=== PATIENT | female | born 1980 | race Caucasian/White ===

== ENCOUNTER 2018-09-12 18:35 | Emergency (ER) | payer SELFPAY ==
[2018-09-12 18:46] VITALS: BP 119/85; PULSE 102; TEMP 98.3; BMI 34.7
[2018-09-12] MEDS ORDERED: SODIUM CHLORIDE 1,000 ML IV ONE (19:15)
[2018-09-12] MEDS ORDERED: ACETAMINOPHEN 1000 MG/100 ML VIAL (NON FORMULARY) IVPB ONE (19:16)
[2018-09-12] MEDS ORDERED: ONDANSETRON 4 MG/2 ML VIAL IVPB ONE (19:19)
[2018-09-12] MEDS ORDERED: HYOSCYAMINE SULFATE 0.125 MG *ODT PO ONE (19:20)
[2018-09-12] MEDS ORDERED: FAMOTIDINE 20 MG TABLET PO ONE (19:51)
[2018-09-12] MEDS ORDERED: ACETAMINOPHEN INJECTION 100 ML IVPB ONE (19:56)
[2018-09-12] MEDS ORDERED: HYOSCYAMINE SULFATE 0.125 MG *ODT ONE (19:56)
[2018-09-12] MEDS ORDERED: ONDANSETRON 4 MG/2 ML VIAL ONE (19:56)
[2018-09-12 20:02] LABS: BASO % 0.1 % (0-2.0); EOS % 0.6 % (0-4.5); HEMATOCRIT 40.8 % (32.4-45.2); HEMOGLOBIN 13.6 GM/dl (10.7-15.3); LYMPH % 7.7 % (8-40); MCH 27.8 pg (25.7-33.7); MCHC 33.4 g/dl (32.0-36.0); MEAN CELL VOLUME 83.1 fl (80-96); MEAN PLT VOLUME 9.4 fl (7.5-11.1); MONO % 5.4 % (3.8-10.2); NEUT % 86.2 % (42.8-82.8); PLATELET COUNT 289 K/MM3 (134-434); RDW 14.4 % (11.6-15.6); WHITE BLOOD COUNT 14.2 K/mm3 (4.0-10.8)
[2018-09-12 20:20] LABS: ALBUMIN 4.4 g/dl (3.4-5.0); BILIRUBIN,TOTAL 0.5 mg/dl (0.2-1); CALCIUM 9.4 mg/dl (8.5-10); CREATININE 0.6 mg/dl (0.55-1.3); POTASSIUM 4.2 mmol/L (3.5-5.1); TOT PROT 9.1 g/dl (6.4-8.2)
[2018-09-12] MEDS ORDERED: FAMOTIDINE 20 MG TABLET ONE (20:38)
--- NOTE | 2018-09-12 21:00 | PDOC ---
Documentation entered by Erika Moulton SCRIBE, acting as scribe for Deion Harris MD. Deion Harris MD: This documentation has been prepared by the Saige brandon Brenda, SCRIBE, under my direction and personally reviewed by me in its entirety. I confirm that the documentation accurately reflects all work , treatment, procedures, and medical decision making performed by me. History of Present Illness - General Chief Complaint: Lightheaded Stated Complaint: VOMITING,DIARRHEA,ROOM SPINNING History Source: Patient Exam Limitations: No Limitations - History of Present Illness Initial Comments: 09/12/18 19:28 The patient is a 37 year old female, with a significant PMH of pre-DM who presents to the emergency department with NBNB vomiting and diarrhea since this morning. As per patient, she is lactose intolerant and had tuna and pasta yesterday, and admits to consuming milk. She also notes that her bowel movements have been rice-like and light colored . The patient additionally reports that, she is experiencing some associated lower abdominal pain. Patient also reports having irregular menstruations due to IED for 7 years. The patient denies fluctuation between constipation and diarrhea. Denies LOC, chest pain, shortness of breath, headache and dizziness. Denies fever, chills and any urinary symptoms. PAST MEDICAL HISTORY: no significant history PAST SURGICAL HISTORY: no significant history FAMILY HISTORY: no pertinent history SOCIAL HISTORY: Patient denies any use of tobacco, alcohol or illicit drugs. MEDICATIONS: reviewed ALLERGIES: As per nursing notes PCP: Not on staff General: No fevers or chills, no weakness, no weight loss HEENT: No change in vision. No sore throat,. No ear pain CardioVascular: No chest pain or shortness of breath Respiratory:No cough, or wheezing. Gastrointestinal:(+)Vomiting. (+) diarrhea. (+) Abdominal pain. No constipation , No rectal bleeding Genitourinary: No dysuria, hematuria, or frequency Musculoskeletal: No joint or muscle pain or swelling Neurologic: No headache, vertigo, dizziness or loss of consciousness Psychiatric: nor depression Skin: No rashes or easy bruising Endocrine: no increased thirst or abnormal weight change Allergic: no skin or latex allergy All other systems reviewed and normal General: Well-nourished well-developed individual, no acute distress HEENT: Throat: Normal, tonsils normal, no erythema or exudate Neck: Supple, no meningeal signs, no lymphadenopathy Eyes::Pupils equal reactive and round, extraocular motion intact Chest: Nontender to palpation Cardiac: S1-S2 normal, regular rate and rhythm, no murmurs rubs or gallops Respiratory: Lungs clear to auscultation bilateral Abdomen: (+) Mild tenderness to palpation on the epigastric and superpubic area. Soft, nondistended, normal bowel sounds. Extremities: Warm, dry, no cyanosis, clubbing, or edema Skin: No rashes Neuro: Alert and oriented x3, nonfocal exam, grossly intact, normal gait Psych: Normal mood and affect 09/12/18 20:56 Assessment and plan: This is a 37-year-old female comes in complaining of nausea vomiting diarrhea and abdominal pain in the epigastric and suprapubic areas. Patient workup initiated including CBC, comp, IV fluids and antiemetics. Reevaluation post workup and IV fluids 1 L patient feels much better pain is resolved patient appears well-hydrated and that would like to go home. Patient has had no further episodes of nausea vomiting or diarrhea in the ED. Past History - Past Medical History Allergies/Adverse Reactions: Allergies Allergy/AdvReac Type Severity Reaction Status Date / Time No Known Allergies Allergy Verified 09/12/18 18:39 Home Medications: Ambulatory Orders Ondansetron [Zofran Odt -] 4 mg SL TID #12 od.tablet 09/12/18 Asthma: No Cancer: No Cardiac Disorders: No COPD: No Diabetes: No HTN: No Seizures: No Thyroid Disease: No Other medical history: pt denies - Reproductive History (#): 4 Para: 3 Cervical CA: No Dysfunctional Uterine Bleeding: No Ectopic : No Endometrial CA: No Polycystic Ovaries: No Therapeutic (s) & number: No Tubal Ligation: No Spontaneous : 0 - Suicide/Smoking/Psychosocial Hx Smoking Status: No Smoking History: Never smoked Number of Cigarettes Smoked Daily: 0 Hx Alcohol Use: No Drug/Substance Use Hx: No Substance Use Type: None Hx Substance Use Treatment: No *Physical Exam - Vital Signs Last Vital Signs Temp Pulse Resp BP Pulse Ox 98.3 F 102 H 19 119/85 100 09/12/18 18:36 09/12/18 18:36 09/12/18 18:36 09/12/18 18:36 09/12/18 18:36 ED Treatment Course - LABORATORY CBC & Chemistry Diagram: 09/12/18 19:50 09/12/18 19:50 - ADDITIONAL ORDERS Additional order review: Laboratory Results 09/12/18 09/12/18 09/12/18 19:50 19:50 19:50 Sodium Potassium Chloride Carbon Dioxide Anion Gap BUN Creatinine Est GFR (CKD-EPI)AfAm Est GFR (CKD-EPI)NonAf Random Glucose Calcium Total Bilirubin AST ALT Alkaline Phosphatase Total Protein Albumin Lipase 132 Urine Color Yellow Urine Appearance Clear Urine pH 5.0 Urine Protein 1+ H Urine Glucose (UA) Negative Urine Ketones Negative Urine Blood Negative Urine Nitrite Negative Urine Bilirubin 1+ H Urine Urobilinogen 0.2 Ur Leukocyte Esterase Negative Urine RBC 0-2 Urine WBC 2-4 Urine Bacteria Few Urine HCG, Qual Negative 09/12/18 19:50 Sodium 136 Potassium 4.2 Chloride 105 Carbon Dioxide 25 Anion Gap 6 L BUN 17.0 Creatinine 0.6 Est GFR (CKD-EPI)AfAm 134.96 Est GFR (CKD-EPI)NonAf 116.44 Random Glucose 109 H Calcium 9.4 Total Bilirubin 0.5 AST 57 H ALT 40 Alkaline Phosphatase 85 Total Protein 9.1 H Albumin 4.4 Lipase Urine Color Urine Appearance Urine pH Urine Protein Urine Glucose (UA) Urine Ketones Urine Blood Urine Nitrite Urine Bilirubin Urine Urobilinogen Ur Leukocyte Esterase Urine RBC Urine WBC Urine Bacteria Urine HCG, Qual 09/12/18 19:50 RBC 4.90 MCV 83.1 MCHC 33.4 RDW 14.4 MPV 9.4 Neutrophils % 86.2 H Lymphocytes % 7.7 L Monocytes % 5.4 Eosinophils % 0.6 Basophils % 0.1 - Medications Given in the ED: ED Medications Discontinued Medications Generic Name Dose Route Start Last Admin Trade Name Freq PRN Reason Stop Dose Admin Acetaminophen 1,000 mg 09/12/18 19:16 09/12/18 20:00 Ofirmev Injection - IVPB 09/12/18 19:17 1,000 mg ONCE ONE Administration Famotidine 20 mg 09/12/18 19:51 09/12/18 20:39 Pepcid - PO 09/12/18 19:52 20 mg ONCE ONE Administration Hyoscyamine Sulfate 0.125 mg 09/12/18 19:20 09/12/18 20:00 Levsin Odt - PO 09/12/18 19:21 0.125 mg ONCE ONE Administration Sodium Chloride 1,000 mls @ 1,000 mls/hr 09/12/18 19:15 09/12/18 19:51 Normal Saline - IV 09/12/18 20:14 1,000 mls/hr .Q1H ONE Administration Ondansetron HCl 8 mg 09/12/18 19:19 09/12/18 20:03 Zofran Injection IVPB 09/12/18 19:20 8 mg ONCE ONE Administration *DC/Admit/Observation/Transfer Diagnosis at time of Disposition: Nausea vomiting and diarrhea, Dehydration - Discharge Dispostion Disposition: HOME Condition at time of disposition: Stable Decision to Admit order: No - Referrals - Patient Instructions Additional Instructions: If you have any further nausea U can take Zofran 1 tablet as often as 3 times a day T dissolve under your tongue. Get some [id number] Imodium and take it as directed for the diarrhea if you have any further diarrhea. Return to the emergency department immediately with ANY new, persistent or worsening symptoms. Continue any medications as previously prescribed by your physician. You should follow up with your primary doctor as soon as possible regarding today's emergency department visit. . Please make sure your doctor reviews the results of your emergency evaluation. Thank you for coming to the Emergency Department today for your care. It was a pleasure to see you today. Please note that your evaluation is INCOMPLETE until you follow-up with your doctor. - Post Discharge Activity
== END 2018-09-12 21:05 | disposition home or self-care (01) ==
LOC: FER 18:35
PROC: 3E033NZ Introduction of Analgesics, Hypnotics, Sedatives into Peripheral Vein, Percutaneous Approach (ICD-10-PCS; principal; 2018-09-12)
PROC: 3E033GC Introduction of Other Therapeutic Substance into Peripheral Vein, Percutaneous Approach (ICD-10-PCS; 2018-09-12)
PROC: 3E0337Z Introduction of Electrolytic and Water Balance Substance into Peripheral Vein, Percutaneous Approach (ICD-10-PCS; 2018-09-12)
DX: R11.2 Nausea with vomiting, unspecified (principal); R19.7 Diarrhea, unspecified; E86.0 Dehydration; R73.03 Prediabetes
CPT/HCPCS: 36415; 80053; 81003; 81015; 81025; 83690; 84703; 85025; 99283-25; J0131; J7030

== ENCOUNTER 2020-01-24 18:17 | Emergency (ER) | payer SELFPAY ==
[2020-01-24 18:32] VITALS: BP 117/73; PULSE 86; TEMP 98.2; BMI 31.8
[2020-01-24 19:12] LABS: URINE APPEARANCE CLEAR; URINE BILIRUBIN NEGATIVE (NEGATIVE); URINE COLOR YELLOW; URINE GLUCOSE (UA) NEGATIVE (NEGATIVE); URINE KETONE NEGATIVE (NEGATIVE); URINE LEUK ESTERASE NEGATIVE (NEGATIVE); URINE NITRITE NEGATIVE (NEGATIVE); URINE PROTEIN NEGATIVE (NEGATIVE); URINE UROBILINOGEN 0.2 mg/dL (0.2-1.0)
[2020-01-24 19:51] LABS: HCG,QUALITATIVE URINE Negative
== END 2020-01-24 20:53 | disposition home or self-care (01) ==
LOC: JERFT 18:17
DX: T19.2XXA Foreign body in vulva and vagina, initial encounter (principal)
CPT/HCPCS: 36415; 81003; 84703; 87086; 87491; 87591; 99284-25

== ENCOUNTER 2021-05-13 21:23 | Emergency (ER) | payer OTHER ==
[2021-05-13 21:32] VITALS: TEMP 98.3; BMI 35.0
[2021-05-14] MEDS ORDERED: ACETAMINOPHEN 500 MG TABLET (FP) PO ONE (00:16)
[2021-05-14] MEDS ORDERED: METOCLOPRAMIDE HCL INJECTION 10 MG/2 ML VIAL IVPUSH ONE (00:16)
[2021-05-14] MEDS ORDERED: SODIUM CHLORIDE 0.9% 500 ML INFUS.BAG IV ONE (00:17)
[2021-05-14] MEDS ORDERED: ACETAMINOPHEN 325 MG TABLET (FP) ONE (00:24)
[2021-05-14] MEDS ORDERED: METOCLOPRAMIDE HCL INJECTION 10 MG/2 ML VIAL ONE (00:25)
[2021-05-14 00:38] LABS: BASO % 0.7 % (0-2.0); EOS % 2.3 % (0-4.5); HEMATOCRIT 33.4 % (32.4-45.2); HEMOGLOBIN 10.9 GM/dL (10.7-15.3); LYMPH % 32.6 % (8-40); MCH 24.9 pg (25.7-33.7); MCHC 32.7 g/dl (32.0-36.0); MEAN CELL VOLUME 76.3 fl (80-96); MEAN PLT VOLUME 8.8 fl (7.5-11.1); MONO % 7.4 % (3.8-10.2); PLATELET COUNT 283 10^3/uL (134-434); RBC 4.37 M/mm3 (3.60-5.2); RDW 18.7 % (11.6-15.6)
[2021-05-14 00:43] LABS: EPI CELLS 21 /uL (0-25.1); HYALINE CASTS 0 /uL (0-3.1); URINE APPEARANCE CLEAR; URINE BACTERIA 407 /uL (0-1359); URINE BILIRUBIN NEGATIVE (NEGATIVE); URINE COLOR YELLOW; URINE GLUCOSE (UA) NEGATIVE (NEGATIVE); URINE KETONE NEGATIVE (NEGATIVE); URINE LEUK ESTERASE 1+ (NEGATIVE); URINE NITRITE NEGATIVE (NEGATIVE); URINE PROTEIN NEGATIVE (NEGATIVE); URINE RBC 36 /uL (0-23.9); URINE UROBILINOGEN 0.2 mg/dL (0.2-1.0); URINE WBC 41 /uL (0-25.8)
[2021-05-14 01:08] LABS: ALBUMIN 3.3 g/dl (3.4-5.0); CALCIUM 8.7 mg/dL (8.5-10.1)
[2021-05-14 01:09] LABS: BLOOD UREA NITROGEN 6.4 mg/dL (7-18)
[2021-05-14 01:11] LABS: CREATININE 0.5 mg/dL (0.55-1.3)
[2021-05-14 01:13] LABS: BILIRUBIN,TOTAL 0.4 mg/dL (0.2-1); TOT PROT 7.7 g/dl (6.4-8.2)
[2021-05-14 01:53] VITALS: BP 116/66; PULSE 61
== END 2021-05-14 01:53 | disposition home or self-care (01) ==
LOC: JER 21:23
PROC: 3E033GC Introduction of Other Therapeutic Substance into Peripheral Vein, Percutaneous Approach (ICD-10-PCS; principal; 2021-05-13)
PROC: 3E033GC Introduction of Other Therapeutic Substance into Peripheral Vein, Percutaneous Approach (ICD-10-PCS; 2021-05-13)
DX: O26.891 Other specified pregnancy related conditions, first trimester (principal); R51.9 Headache, unspecified; Z3A.08 8 weeks gestation of pregnancy
CPT/HCPCS: 36415; 80053; 81003; 85025; 87086; 96374; 96375; 99284-25

== ENCOUNTER 2021-07-01 18:43 | Emergency (ER) | payer OTHER ==
[2021-07-01 19:07] VITALS: BP 125/72; PULSE 84; TEMP 98; BMI 34.7
[2021-07-01 21:55] LABS: BASO % 0.8 % (0-2.0); EOS % 2.3 % (0-4.5); HEMATOCRIT 34.5 % (32.4-45.2); HEMOGLOBIN 11.2 GM/dL (10.7-15.3); LYMPH % 22.2 % (8-40); MCH 26.7 pg (25.7-33.7); MCHC 32.5 g/dl (32.0-36.0); MEAN CELL VOLUME 82.2 fl (80-96); MEAN PLT VOLUME 9.5 fl (7.5-11.1); MONO % 7.7 % (3.8-10.2); PLATELET COUNT 264 10^3/uL (134-434); RDW 18.9 % (11.6-15.6); WHITE BLOOD COUNT 9.2 K/mm3 (4.0-10.0)
[2021-07-01 21:56] LABS: URINE APPEARANCE CLEAR; URINE BILIRUBIN NEGATIVE (NEGATIVE); URINE COLOR YELLOW; URINE GLUCOSE (UA) NEGATIVE (NEGATIVE); URINE KETONE TRACE (NEGATIVE); URINE LEUK ESTERASE NEGATIVE (NEGATIVE); URINE NITRITE NEGATIVE (NEGATIVE); URINE PROTEIN NEGATIVE (NEGATIVE)
[2021-07-01 22:12] LABS: CALCIUM 8.9 mg/dL (8.5-10.1)
[2021-07-01 22:13] LABS: BLOOD UREA NITROGEN 6.1 mg/dL (7-18)
[2021-07-01 22:16] LABS: CREATININE 0.4 mg/dL (0.55-1.3)
[2021-07-01 22:17] LABS: TOT PROT 7.4 g/dl (6.4-8.2)
[2021-07-01 22:35] LABS: BILIRUBIN,TOTAL 0.3 mg/dL (0.2-1)
== END 2021-07-02 00:05 | disposition home or self-care (01) ==
LOC: JER 18:43
DX: O20.9 Hemorrhage in early pregnancy, unspecified (principal); Z3A.17 17 weeks gestation of pregnancy
CPT/HCPCS: 36415; 76817-TC; 80053; 81003; 84702; 85025; 87086; 99284-25

== ENCOUNTER 2021-12-03 14:00 | Inpatient (IN) | payer OTHER ==
[2021-12-03] MEDS ORDERED: DINOPROSTONE 10 MG VAGINAL SUPPOSITORY VG ONE (14:29)
[2021-12-03] MEDS ORDERED: BUTORPHANOL TARTRATE 1 MG/ML VIAL IVPUSH PRN (14:33)
[2021-12-03] MEDS ORDERED: PROMETHAZINE HCL 25 MG/1 ML VIAL IVPUSH ONE (14:33)
[2021-12-03] MEDS: ELECTROLYTE-148 SOLN 1,000 ML IV SCH (15:00)
[2021-12-03 15:29] VITALS: BMI 35.2
[2021-12-03 16:46] LABS: BASO % 0.2 % (0-2.0); EOS % 0.9 % (0-4.5); HEMATOCRIT 38.9 % (32.4-45.2); HEMOGLOBIN 13.1 GM/dL (10.7-15.3); MCHC 33.7 g/dl (32.0-36.0); MEAN CELL VOLUME 88.9 fl (80-96); MEAN PLT VOLUME 11.1 fl (7.5-11.1); MONO % 4.8 % (3.8-10.2); NEUT % 74.1 % (42.8-82.8); PLATELET COUNT 167 10^3/uL (134-434); RBC 4.37 M/mm3 (3.60-5.2); RDW 15.6 % (11.6-15.6); WHITE BLOOD COUNT 9.2 K/mm3 (4.0-10.0)
[2021-12-03 16:52] LABS: INR 0.97 (0.83-1.09); PROTHROMBIN TIME (PATIENT) 11.2 SEC (9.7-13.0)
[2021-12-03 16:54] LABS: ACTIVATED PTT 29.6 SECONDS (25.2-36.5)
[2021-12-03 17:01] LABS: CALCIUM 8.9 mg/dL (8.5-10.1)
[2021-12-03 17:03] LABS: BLOOD UREA NITROGEN 7.4 mg/dL (7-18)
[2021-12-03 17:06] LABS: CREATININE 0.4 mg/dL (0.55-1.3)
[2021-12-03] MEDS ORDERED: TERBUTALINE SULFATE 1 MG/1 ML VIAL SQ ONE (18:55)
[2021-12-03] MEDS ORDERED: BUTORPHANOL TARTRATE 2 MG/ML VIAL ONE (21:23)
[2021-12-03] MEDS ORDERED: PROMETHAZINE HCL 25 MG/1 ML VIAL ONE (21:23)
[2021-12-04] MEDS ORDERED: FENTANYL/BUPIVACAINE/NS/PF - PCEA - 50 ML DISP.SYRIN EP ONE ×3 (00:41→10:21)
[2021-12-04] MEDS ORDERED: NALOXONE HCL 0.4 MG/ML VIAL IVPUSH PRN (00:51)
[2021-12-04] MEDS ORDERED: BUPIVACAINE HCL/PF 0.25% (2.5MG/ML) 10 ML VIAL ONE (00:56)
[2021-12-04] MEDS: FENTANYL/BUPIVACAINE/NS/PF - PCEA - 50 ML DISP.SYRIN EP SCH ×3 (01:25→10:25)
[2021-12-04] MEDS: ELECTROLYTE-148 SOLN 1,000 ML IV SCH ×2 (02:15→11:00)
[2021-12-04] MEDS ORDERED: PHENYLEPHRINE HCL 10 MG/1 ML SINGLE DOSE VIAL ONE (02:26)
[2021-12-04] MEDS ORDERED: ePHEDrine SULFATE 50 MG/1 ML AMPULE ONE (02:36)
[2021-12-04] MEDS ORDERED: SODIUM CHLORIDE 0.9% P/F 10 ML VIAL IJ ONE (02:36)
[2021-12-04] MEDS ORDERED: OXYTOCIN 30 UNITS in 0.9% NS 30 UNIT/500 ML INFUS.BAG IVPB ONE ×2 (08:25→11:57)
[2021-12-04] MEDS: OXYTOCIN 30 UNITS in 0.9% NS 30 UNIT/500 ML INFUS.BAG IVPB SCH (08:30)
[2021-12-04] MEDS ORDERED: ELECTROLYTE-148 SOLN 500 ML IV ONE (10:50)
[2021-12-04] MEDS ORDERED: CITRIC ACID/SODIUM CITRATE 30 ML UNIT-DOSE CUP PO ONE (11:49)
[2021-12-04] MEDS ORDERED: LIDOCAINE HCL/EPINEPHRINE/PF 20 ML VIAL ONE (11:54)
[2021-12-04] MEDS ORDERED: METOCLOPRAMIDE HCL INJECTION 10 MG/2 ML VIAL ONE (12:25)
[2021-12-04] MEDS ORDERED: ONDANSETRON 4 MG/2 ML VIAL ONE (12:25)
[2021-12-04] MEDS ORDERED: morphine SULFATE/PF 1 MG/2 ML (2cc Syringe - QUVA) EP ONE (12:35)
[2021-12-04] MEDS ORDERED: OXYTOCIN 10 UNITS/ML VIAL ONE (13:09)
[2021-12-04] MEDS ORDERED: MIDAZOLAM HCL 2 MG/2 ML SINGLE DOSE VIAL ONE (13:12)
[2021-12-04] MEDS ORDERED: METHYLERGONOVINE MALEATE 0.2 MG/1 ML AMP IM PRN (13:17)
[2021-12-04] MEDS ORDERED: ACETAMINOPHEN 325 MG TABLET (FP) PO PRN (13:17)
[2021-12-04 13:19] LABS: CORD BASE EXCESS -2.8 mmol/L (0-2); CORD HCO3 23.3 mmHg (20-29); CORD PCO2 45.2 mmHg (30-78); CORD pH 7.33 (7.14-7.44)
[2021-12-04 13:28] LABS: CORD HCO3 28.3 mmHg (20-29); CORD PCO2 62.4 mmHg (30-78); CORD pH 7.274 (7.14-7.44)
[2021-12-04] MEDS ORDERED: ONDANSETRON 4 MG/2 ML VIAL IVPUSH PRN (13:38)
[2021-12-04] MEDS: OXYTOCIN 20 UNITS in 0.9% NS 20 UNIT/1,000 ML INFUS.BAG IV SCH (13:45)
[2021-12-04] MEDS: CEFAZOLIN 1 GM in DEXTROSE 5%-WATER - 50 ML IVPB SCH (17:21)
[2021-12-04] MEDS: IBUPROFEN 800 MG/8 ML IJ IVPB PRN (18:08)
[2021-12-05] MEDS: CEFAZOLIN 1 GM in DEXTROSE 5%-WATER - 50 ML IVPB SCH ×2 (01:06→09:42)
[2021-12-05] MEDS: OXYTOCIN 20 UNITS in 0.9% NS 20 UNIT/1,000 ML INFUS.BAG IV SCH (01:11)
[2021-12-05] MEDS ORDERED: oxyCODONE HCL 5 MG TABLET PO PRN ×2 (01:17)
[2021-12-05] MEDS: IBUPROFEN 800 MG/8 ML IJ IVPB PRN (06:30)
[2021-12-05 06:37] VITALS: RESP 18
[2021-12-05] MEDS: ACETAMINOPHEN 325 MG TABLET (FP) PO PRN ×2 (07:57→15:40)
[2021-12-05 08:04] LABS: BASO % 0.2 % (0-2.0); EOS % 0.6 % (0-4.5); HEMATOCRIT 34.8 % (32.4-45.2); HEMOGLOBIN 11.5 GM/dL (10.7-15.3); LYMPH % 7.7 % (8-40); MCH 29.4 pg (25.7-33.7); MCHC 32.9 g/dl (32.0-36.0); MEAN CELL VOLUME 89.1 fl (80-96); MEAN PLT VOLUME 10.5 fl (7.5-11.1); MONO % 5.1 % (3.8-10.2); NEUT % 86.4 % (42.8-82.8); PLATELET COUNT 140 10^3/uL (134-434); RDW 15.4 % (11.6-15.6); WHITE BLOOD COUNT 10.2 K/mm3 (4.0-10.0)
[2021-12-05] MEDS: ENOXAPARIN NA (PORCINE) 40 MG/0.4 ML DISP.SYRIN SQ SCH (09:42)
[2021-12-05] MEDS ORDERED: DIPHTH,PERTUSS(ACELL),TET 0.5 ML DISP.SYRIN IM ONE (10:00)
[2021-12-05] MEDS ORDERED: BISACODYL 10 MG SUPP.RECT RC PRN (13:17)
[2021-12-05 16:55] LABS: BASO % 0.1 % (0-2.0); EOS % 1.1 % (0-4.5); HEMATOCRIT 38.2 % (32.4-45.2); HEMOGLOBIN 12.6 GM/dL (10.7-15.3); LYMPH % 12.2 % (8-40); MCH 29.9 pg (25.7-33.7); MCHC 32.9 g/dl (32.0-36.0); MEAN CELL VOLUME 90.8 fl (80-96); MEAN PLT VOLUME 10.7 fl (7.5-11.1); MONO % 5.2 % (3.8-10.2); NEUT % 81.4 % (42.8-82.8); PLATELET COUNT 162 10^3/uL (134-434); RBC 4.21 M/mm3 (3.60-5.2); RDW 15.2 % (11.6-15.6); WHITE BLOOD COUNT 12.1 K/mm3 (4.0-10.0)
[2021-12-05] MEDS: AMPICILLIN NA/SULBACTAM NA 3 GM in SODIUM CHLORIDE 100 ML IVPB SCH ×2 (16:56→21:14)
[2021-12-05] MEDS: SIMETHICONE 80 MG TAB.CHEW (FP) PO PRN (20:06)
[2021-12-05] MEDS: IBUPROFEN 600 MG TABLET (FP) PO PRN (20:07)
[2021-12-05] MEDS: FENTANYL/BUPIVACAINE/NS/PF - PCEA - 50 ML DISP.SYRIN EP SCH (22:50)
[2021-12-05] MEDS: ELECTROLYTE-148 SOLN 1,000 ML IV SCH (22:51)
[2021-12-05] MEDS: OXYTOCIN 30 UNITS in 0.9% NS 30 UNIT/500 ML INFUS.BAG IVPB SCH (22:51)
[2021-12-06] MEDS: AMPICILLIN NA/SULBACTAM NA 3 GM in SODIUM CHLORIDE 100 ML IVPB SCH ×3 (03:46→16:43)
[2021-12-06 09:26] LABS: BASO % 0.2 % (0-2.0); EOS % 2.5 % (0-4.5); HEMATOCRIT 34.8 % (32.4-45.2); HEMOGLOBIN 11.3 GM/dL (10.7-15.3); LYMPH % 13.2 % (8-40); MCH 29.3 pg (25.7-33.7); MCHC 32.6 g/dl (32.0-36.0); MEAN CELL VOLUME 89.9 fl (80-96); MEAN PLT VOLUME 10.9 fl (7.5-11.1); MONO % 5.3 % (3.8-10.2); NEUT % 78.8 % (42.8-82.8); PLATELET COUNT 160 10^3/uL (134-434); RBC 3.87 M/mm3 (3.60-5.2); RDW 15.8 % (11.6-15.6); WHITE BLOOD COUNT 10.3 K/mm3 (4.0-10.0)
[2021-12-06] MEDS: ENOXAPARIN NA (PORCINE) 40 MG/0.4 ML DISP.SYRIN SQ SCH (10:18)
[2021-12-06] MEDS: IBUPROFEN 600 MG TABLET (FP) PO PRN ×2 (11:35→17:31)
[2021-12-06] MEDS: SIMETHICONE 80 MG TAB.CHEW (FP) PO PRN (17:31)
[2021-12-07 07:57] VITALS: BP 119/74; PULSE 18; TEMP 97.8
[2021-12-07 09:09] LABS: BASO % 0.2 % (0-2.0); EOS % 3.4 % (0-4.5); HEMATOCRIT 34.7 % (32.4-45.2); HEMOGLOBIN 11.8 GM/dL (10.7-15.3); LYMPH % 13.3 % (8-40); MCH 30.4 pg (25.7-33.7); MCHC 34.1 g/dl (32.0-36.0); MEAN CELL VOLUME 89.4 fl (80-96); MEAN PLT VOLUME 9.7 fl (7.5-11.1); MONO % 4.7 % (3.8-10.2); NEUT % 78.4 % (42.8-82.8); PLATELET COUNT 198 10^3/uL (134-434); RBC 3.88 M/mm3 (3.60-5.2); RDW 15.7 % (11.6-15.6); WHITE BLOOD COUNT 8.5 K/mm3 (4.0-10.0)
[2021-12-07] MEDS: IBUPROFEN 600 MG TABLET (FP) PO PRN (09:44)
[2021-12-07] MEDS: ENOXAPARIN NA (PORCINE) 40 MG/0.4 ML DISP.SYRIN SQ SCH (09:45)
== END 2021-12-07 11:15 | disposition home or self-care (01) | DRG 540 ==
LOC: JLDR 14:00 → J3W 12-04 14:51
PROVIDERS: ADMIT Obstetrics & Gynecology; ATTEND Obstetrics & Gynecology
PROC: 3E0P7VZ Introduction of Hormone into Female Reproductive, Via Natural or Artificial Opening (ICD-10-PCS; 2021-12-03)
PROC: 10D00Z1 Extraction of Products of Conception, Low, Open Approach (ICD-10-PCS; principal; 2021-12-04)
PROC: 10907ZC Drainage of Amniotic Fluid, Therapeutic from Products of Conception, Via Natural or Artificial Opening (ICD-10-PCS; 2021-12-04)
PROC: 10H073Z Insertion of Monitoring Electrode into Products of Conception, Via Natural or Artificial Opening (ICD-10-PCS; 2021-12-04)
DX: O62.0 Primary inadequate contractions (principal); O76 Abnormality in fetal heart rate and rhythm complicating labor and delivery; O61.0 Failed medical induction of labor; O32.6XX0 Maternal care for compound presentation, not applicable or unspecified; O86.12 Endometritis following delivery; O24.424 Gestational diabetes mellitus in childbirth, insulin controlled; O99.214 Obesity complicating childbirth; E66.9 Obesity, unspecified; Z3A.39 39 weeks gestation of pregnancy; Z37.0 Single live birth
CPT/HCPCS: 36415; 36600; 80048; 82803; 82962; 85025; 85610; 85730; 86780; 86850; 86900; 86901; 88307-TC; 90715; C9803-CS; U0003; U0005